=== PATIENT | male | born 1960 | race Two or more races ===

== ENCOUNTER → 2022-03-17 | Outpatient (CLI) | payer MEDICARE | END | disposition home or self-care (01) | LOC: RAD 17:12 | DX: M17.0 Bilateral primary osteoarthritis of knee (principal); M25.461 Effusion, right knee; M25.762 Osteophyte, left knee; D16.22 Benign neoplasm of long bones of left lower limb; M25.862 Other specified joint disorders, left knee | CPT/HCPCS: 73562 ==